=== PATIENT | female | born 1955 ===

== ENCOUNTER 2017-02-05 11:39 | Emergency (ER) | payer OTHER ==
[2017-02-05 11:50] VITALS: BP 137/82; PULSE 90; RESP 18; TEMP 98.1; O2SAT 98
[2017-02-05] MEDS ORDERED: Sodium Chloride 0.9% 1,000 ML IV STA (12:24)
--- NOTE | 2017-02-05 12:30 | ED PDOC ---
HPI: Neurologic - General Time Seen by Provider: 02/05/17 12:02 Chief Complaint (Nursing): Dizziness/Lightheaded Chief Complaint (Provider): Dizziness Source: patient Exam Limitations: no limitations - History of Present Illness Timing/Duration: 4-6 hours (onset this morning) Severity: moderate Allergies/Adverse Reactions: Allergies No Known Allergies Allergy (Verified 03/17/16 00:06) Home Medications: Ambulatory Orders traMADol [Ultram] 50 mg PO Q6 #16 tab 03/17/16 Meclizine [Meclizine*] 1 - 2 tab PO Q6 PRN #30 tab 02/05/17 Additional Complaint(s): Marie is a 61 y/o female with a past medical history of hypertension and hypercholesterolemia, who presents to the ED complaining of dizziness since waking up this morning. Denies any associated chest pain, nausea, head injury, headache, fever, or vomiting. She has been prescribed meclizine by PMD but did not take any today because she thought symptoms would go away quickly. Patient reports having similar dizziness in the past, occurring on and off for the past 10 years. She rates symptoms today as moderate, as they have been worse in the past. Patient states having had CT scans of her head in the past, when her dizziness is extreme. PMD: Igor Uribe Past Medical History Reviewed: Historical Data, Nursing Documentation, Vital Signs Vital Signs: Last Vital Signs Temp 98.1 F 02/05/17 11:47 Pulse 90 02/05/17 11:47 Resp 18 02/05/17 11:47 BP 137/82 02/05/17 11:47 Pulse Ox 98 02/05/17 11:47 - Medical History PMH: HTN, Hypercholesterolemia - Surgical History Surgical History: (x2) - Family History Family History: States: Unknown Family Hx - Home Medications Home Medications: Ambulatory Orders Medication Instructions Recorded traMADol [Ultram] 50 mg PO Q6 #16 tab 03/17/16 Meclizine [Meclizine*] 1 - 2 tab PO Q6 PRN #30 tab 02/05/17 - Allergies Allergies/Adverse Reactions: Allergies Allergy/AdvReac Type Severity Reaction Status Date / Time No Known Allergies Allergy Verified 03/17/16 00:06 Review of Systems ROS Statement: Except As Marked, All Systems Reviewed And Found Negative Cardiovascular: Negative for: Chest Pain Gastrointestinal: Negative for: Nausea Neurological: Positive for: Dizziness Physical Exam - Reviewed Nursing Documentation Reviewed: Yes Vital Signs Reviewed: Yes - Physical Exam Appears: Positive for: Non-toxic, No Acute Distress Head Exam: Positive for: ATRAUMATIC, NORMAL INSPECTION, NORMOCEPHALIC Skin: Positive for: Normal Color, Warm, Dry Eye Exam: Positive for: Normal appearance, EOMI, PERRL. Negative for: Nystagmus Neck: Positive for: Normal, Painless ROM, Supple Cardiovascular/Chest: Positive for: Regular Rate, Rhythm. Negative for: Murmur Respiratory: Positive for: Normal Breath Sounds. Negative for: Accessory Muscle Use, Respiratory Distress Gastrointestinal/Abdominal: Positive for: Normal Exam, Soft. Negative for: Tenderness Back: Positive for: Normal Inspection Extremity: Positive for: Normal ROM. Negative for: Calf Tenderness, Deformity Neurologic/Psych: Positive for: Alert, Oriented - Laboratory Results Result Diagrams: 02/05/17 13:15 02/05/17 11:55 - ECG O2 Sat by Pulse Oximetry: 98 (RA) Pulse Ox Interpretation: Normal - Progress ED Course And Treament: 14:54 On re-evaluation, pt. alert and awake orient x 3. Reports complete relief of dizziness. Repeat neuro exam is non-focal. Gait steady unassisted. Pt. states she was scared to take her Meclizine today as she was babysitting her grandson and did not want to become drowsy. Re-evaluation Time: 14:53 Condition: Re-examined, Improved Medical Decision Making Medical Decision Making: Time: 12:23 Initial Plan: --EKG --Blood work --Started on IV fluids and Meclizine --Pending reevaluation and disposition Scribe Attestation: Documented by Zaida Arshad, acting as a scribe for Jonathan Charles PA-C Provider Scribe Attestation: All medical record entries made by the Scribe were at my direction and personally dictated by me. I have reviewed the chart and agree that the record accurately reflects my personal performance of the history, physical exam, medical decision making, and the department course for this patient. I have also personally directed, reviewed, and agree with the discharge instructions and disposition. Disposition - Clinical Impression Clinical Impression: Vertigo - Patient ED Disposition Is Patient to be Admitted: No - Disposition Referrals: Igor Uribe MD [Family Provider] - Disposition: Routine/Home Disposition Time: 14:56 Condition: STABLE Additional Instructions: FOLLOW UP WITH DR. URIBE FOR FURTHER EVALUATION RETURN TO ED IMMEDIATELY IF SYMPTOMS PERSIST OR WORSEN Prescriptions: Meclizine [Meclizine*] 1 - 2 tab PO Q6 PRN #30 tab PRN Reason: Dizziness Instructions: Vertigo (ED) Forms: [employer] (Irish)
[2017-02-05 13:50] LABS: BASO % 0.3 % (0.0-2.0); EOS % 0.3 % (0.0-4.0); HEMATOCRIT 36.1 % (34.0-47.0); LYMPH # 1.6 K/uL (1.0-4.3); LYMPH % 26.6 % (20.0-40.0); MEAN CORPUSCULAR HEMOGLOBIN 29.6 pg (27.0-31.0); MEAN CORPUSCULAR HGB CONC 32.5 g/dL (33.0-37.0); MONO # 0.3 K/uL (0.0-0.8); MONO % 4.7 % (0.0-10.0); NEUT # 4.1 K/uL (1.8-7.0); NEUT % 68.1 % (50.0-75.0); NRBC % 0.1 % (0.0-0.0); RED CELL DISTRIBUTION WIDTH 13.7 % (11.5-14.5)
[2017-02-05 14:23] LABS: ALB/GLOB RATIO 1.3 (1.0-2.1); ALKALINE PHOSPHATASE 51 U/L (38-126); ALT/SGPT 28 U/L (9-52); AST/SGOT 33 U/L (14-36); BILIRUBIN,TOTAL 0.4 mg/dl (0.2-1.3); BLOOD UREA NITROGEN 16 mg/dl (7-17); CALCIUM 9.6 mg/dL (8.4-10.2); CARBON DIOXIDE 29 mmol/L (22-30); CHLORIDE 101 mmol/L (98-107); GFR AFRICAN-AMERICAN > 60; GLUCOSE,RANDOM 93 mg/dL (65-105); POTASSIUM 3.8 MMOL/L (3.6-5.0); SODIUM 142 mmol/l (132-148); TOTAL PROTEIN 7.7 G/DL (6.3-8.2)
--- NOTE | 2017-02-06 08:34 | CARD ---
APPROVED REPORT EKG Measurement Heart [id number] <Conclusion> Normal sinus rhythm Possible Left atrial enlargement Left ventricular hypertrophy Nonspecific T wave abnormality Abnormal ECG
== END 2017-02-05 15:15 | disposition home or self-care (01) ==
LOC: H.ER 11:39
DX: R42 Dizziness and giddiness (principal); I10 Essential (primary) hypertension
CPT/HCPCS: 80053; 84484; 85025; 93005; 99284; J7040